=== PATIENT | male | born 1940 | race Caucasian/White ===

== ENCOUNTER 2020-08-28 13:51 | Inpatient (IN) | payer MEDICARE, OTHER ==
[~2020-08-28] VITALS: Ht 154.9 cm; Wt 58.8 kg
[2020-08-28 14:48] LABS: Basophils # (auto) 0.1 10 ^3/uL (0-0.2); Basophils % (auto) 0.9 % (0.0-2.0); Eosinophils # (auto) 0.4 10 ^3/uL (0-0.8); Eosinophils % (auto) 5.1 % (0.0-7.0); Hematocrit 38.1 % (41.0-53.0); Hemoglobin 13.2 g/dL (13.5-17.5); Lymphocytes # (auto) 1.8 10 ^3/uL (0.4-5.4); Lymphocytes % (auto) 22.7 % (10.0-50.0); Mean Corpuscular Hemoglobin 32.4 pg (28.0-32.0); Mean Corpuscular Hgb Conc. 34.6 g/dL (32.0-36.0); Mean Corpuscular Volume 93.5 fL (80.0-100.0); Monocytes # (auto) 0.6 10 ^3/uL (0-1.3); Monocytes % (auto) 7.6 % (0.0-12.0); Neutrophils % (auto) 63.7 % (37.0-80.0); Red Blood Cells 4.07 10^6/uL (4.5-5.90); Red Cell Distribution Width 13.5 % (11.8-14.3); White Blood Cell 7.9 10^3/uL (4.4-10.8)
[2020-08-28 15:05] LABS: Albumin 3.2 g/dL (3.4-5.0); Anion Gap 6 (5-15); Blood Urea Nitrogen 27 mg/dL (7-18); Calcium 8.3 mg/dL (8.5-10.1); Carbon Dioxide 25 mmol/L (21-32); Chloride 105 mmol/L (98-107); GFR African American 88 mL/min; GFR Non-African American 73 mL/min; Glucose 154 mg/dL (74-106); Potassium 3.8 mmol/L (3.5-5.1); Sodium 136 mmol/L (136-145)
[2020-08-28 15:10] LABS: Alanine Aminotransferase 51 U/L (16-61); Alkaline Phosphatase 93 U/L (45-117); Aspartate Aminotransferase 32 U/L (15-37); Bilirubin, Total 0.2 mg/dL (0.2-1.0); Total Protein 7.4 g/dL (6.4-8.2)
[2020-08-28 21:17] LABS: Basophils # (auto) 0.1 10 ^3/uL (0-0.2); Eosinophils # (auto) 0.4 10 ^3/uL (0-0.8); Eosinophils % (auto) 5.6 % (0.0-7.0); Hematocrit 35.2 % (41.0-53.0); Hemoglobin 12.4 g/dL (13.5-17.5); Lymphocytes # (auto) 1.8 10 ^3/uL (0.4-5.4); Lymphocytes % (auto) 23.1 % (10.0-50.0); Mean Corpuscular Hemoglobin 32.6 pg (28.0-32.0); Mean Corpuscular Hgb Conc. 35.2 g/dL (32.0-36.0); Mean Corpuscular Volume 92.7 fL (80.0-100.0); Monocytes # (auto) 0.7 10 ^3/uL (0-1.3); Monocytes % (auto) 8.6 % (0.0-12.0); Neutrophils # (auto) 4.7 10 ^3/uL (1.6-8.6); Neutrophils % (auto) 61.7 % (37.0-80.0); Red Cell Distribution Width 13.3 % (11.8-14.3); White Blood Cell 7.7 10^3/uL (4.4-10.8)
[2020-08-28 21:33] LABS: INR 1.05 (0.9-1.15)
[2020-08-28 21:39] LABS: Magnesium 2.4 mg/dL (1.6-2.6); Potassium 3.7 mmol/L (3.5-5.1)
[2020-08-28 21:42] LABS: BUN/Creatinine Ratio 29.3; Bilirubin, Total 0.2 mg/dL (0.2-1.0)
[2020-08-28 23:27] LABS: Urine Bacteria FEW /hpf (None Seen); Urine Blood Negative /uL (Negative); Urine Specific Gravity 1.023 (1.001-1.035); Urine WBC 1 /hpf (0 - 3)
[2020-08-29] MEDS ORDERED: ONDANSETRON HCL 4 MG/2 ML VIAL IV PRN (03:00)
[2020-08-29] MEDS ORDERED: DOCUSATE SOD 100 MG CAP PO PRN (03:00)
[2020-08-29] MEDS ORDERED: ACETAMINOPHEN 325 MG TAB PO PRN (03:00)
[2020-08-29] MEDS ORDERED: DEXTROSE (50%) 50ML SYRG IV PRN ×2 (03:00→13:00)
[2020-08-29] MEDS: InsuLIN REG 1unit/0.01ml Soln (100units/ml) SC SCH ×4 (04:58→17:27)
[2020-08-29] MEDS: SODIUM CHLORIDE 0.9% 1,000 ML IV SCH ×2 (04:58→13:53)
[2020-08-29] MEDS: ACCU-CHEK COMFORT CURVE STRIP VI SCH ×4 (04:58→17:25)
[2020-08-29 07:17] LABS: Basophils # (auto) 0.1 10 ^3/uL (0-0.2); Basophils % (auto) 0.9 % (0.0-2.0); Eosinophils # (auto) 0.5 10 ^3/uL (0-0.8); Eosinophils % (auto) 5.5 % (0.0-7.0); Hematocrit 36.6 % (41.0-53.0); Hemoglobin 13.2 g/dL (13.5-17.5); Lymphocytes # (auto) 1.9 10 ^3/uL (0.4-5.4); Lymphocytes % (auto) 22.1 % (10.0-50.0); Mean Corpuscular Hemoglobin 33.4 pg (28.0-32.0); Mean Corpuscular Volume 92.8 fL (80.0-100.0); Monocytes # (auto) 0.7 10 ^3/uL (0-1.3); Monocytes % (auto) 7.6 % (0.0-12.0); Neutrophils # (auto) 5.5 10 ^3/uL (1.6-8.6); Neutrophils % (auto) 63.9 % (37.0-80.0); Nucleated Red Blood Cells % 0.1 %; Red Blood Cells 3.94 10^6/uL (4.5-5.90); Red Cell Distribution Width 13.2 % (11.8-14.3); White Blood Cell 8.7 10^3/uL (4.4-10.8)
[2020-08-29 07:39] LABS: BUN/Creatinine Ratio 20.7; Calcium 7.9 mg/dL (8.5-10.1); Potassium 3.8 mmol/L (3.5-5.1)
[2020-08-29 09:00] VITALS: BP 172/81
[2020-08-29 13:00] VITALS: BP 152/70
[2020-08-29] MEDS ORDERED: LISINOPRIL 10 MG TAB PO ONE (13:00)
[2020-08-29 13:10] VITALS: BP 168/71
[2020-08-29] MEDS ORDERED: LOSA-39 PO (13:38)
[2020-08-29] MEDS ORDERED: FINA5TAB4 PO (13:38)
[2020-08-29] MEDS ORDERED: TAM04C PO (13:38)
[2020-08-29] MEDS ORDERED: BENA10TA15 PO (13:38)
[2020-08-29] MEDS ORDERED: ASPI-543 PO (13:38)
[2020-08-29] MEDS ORDERED: SIMV-13 PO (13:38)
[2020-08-29] MEDS ORDERED: SERT50TA19 PO (13:38)
[2020-08-29 16:41] VITALS: BP 155/70
[2020-08-29] MEDS: ATORVASTATIN 20 MG TAB PO SCH (21:37)
[2020-08-29 22:15] VITALS: BP 141/71
[2020-08-30] MEDS: ACCU-CHEK COMFORT CURVE STRIP VI SCH ×4 (01:52→17:51)
[2020-08-30 04:56] VITALS: BP 150/67
[2020-08-30] MEDS: InsuLIN REG 1unit/0.01ml Soln (100units/ml) SC SCH ×4 (05:34→17:49)
[2020-08-30 09:00] VITALS: BP 122/71
[2020-08-30] MEDS: ASPirin 81 mg TAB PO SCH (10:12)
[2020-08-30] MEDS: LISINOPRIL 10 MG TAB PO SCH (10:13)
[2020-08-30] MEDS: SODIUM CHLORIDE 0.9% 1,000 ML IV SCH (12:20)
[2020-08-30] MEDS ORDERED: LIDOCAINE 2%HCL (LOCAL ANESTH.) INJ 20ML MDV ONE (12:32)
[2020-08-30 13:00] VITALS: BP 145/70
[2020-08-30 17:00] VITALS: BP 150/63
[2020-08-30] MEDS: ATORVASTATIN 20 MG TAB PO SCH (21:49)
[2020-08-30 22:39] VITALS: BP 130/54
[2020-08-31 05:25] VITALS: BP 142/65
[2020-08-31] MEDS: InsuLIN REG 1unit/0.01ml Soln (100units/ml) SC SCH ×4 (06:00→17:36)
[2020-08-31] MEDS: ACCU-CHEK COMFORT CURVE STRIP VI SCH ×4 (06:03→17:36)
[2020-08-31 08:56] VITALS: BP 144/64
[2020-08-31] MEDS: ASPirin 81 mg TAB PO SCH (09:52)
[2020-08-31] MEDS: LISINOPRIL 10 MG TAB PO SCH (09:53)
[2020-08-31 12:38] VITALS: BP 144/75
[2020-08-31 16:36] VITALS: BP 143/69
[2020-08-31] MEDS: ATORVASTATIN 20 MG TAB PO SCH (21:29)
[2020-08-31 22:00] VITALS: BP 149/72
[2020-09-01] MEDS: ACCU-CHEK COMFORT CURVE STRIP VI SCH ×4 (00:08→17:40)
[2020-09-01 05:00] VITALS: BP 163/76
[2020-09-01] MEDS: InsuLIN REG 1unit/0.01ml Soln (100units/ml) SC SCH ×4 (06:00→17:40)
[2020-09-01 09:00] VITALS: BP 137/64
[2020-09-01] MEDS: ASPirin 81 mg TAB PO SCH (09:18)
[2020-09-01] MEDS: LISINOPRIL 10 MG TAB PO SCH (09:20)
[2020-09-01 13:00] VITALS: BP 142/71
[2020-09-01 17:00] VITALS: BP 155/68
[2020-09-01] MEDS: ATORVASTATIN 20 MG TAB PO SCH (20:53)
[2020-09-01 22:00] VITALS: BP 139/71
[2020-09-02] MEDS: ACCU-CHEK COMFORT CURVE STRIP VI SCH ×5 (00:12→22:57)
[2020-09-02 04:00] VITALS: BP 128/74
[2020-09-02] MEDS: InsuLIN REG 1unit/0.01ml Soln (100units/ml) SC SCH ×5 (04:58→22:57)
[2020-09-02 09:00] VITALS: BP 144/80
[2020-09-02] MEDS: ASPirin 81 mg TAB PO SCH (09:59)
[2020-09-02] MEDS: LISINOPRIL 10 MG TAB PO SCH (09:59)
[2020-09-02 13:00] VITALS: BP 150/84
[2020-09-02 17:46] VITALS: BP 155/68
[2020-09-02] MEDS: ATORVASTATIN 20 MG TAB PO SCH (20:40)
[2020-09-02 22:19] VITALS: BP 147/81
[2020-09-03] MEDS: InsuLIN REG 1unit/0.01ml Soln (100units/ml) SC SCH ×4 (05:02→22:37)
[2020-09-03] MEDS: ACCU-CHEK COMFORT CURVE STRIP VI SCH ×4 (05:02→22:37)
[2020-09-03 05:30] VITALS: BP 155/78
[2020-09-03 08:30] VITALS: BP 146/72
[2020-09-03] MEDS: ASPirin 81 mg TAB PO SCH (10:21)
[2020-09-03] MEDS: LISINOPRIL 10 MG TAB PO SCH (10:22)
[2020-09-03 13:00] VITALS: BP 127/68
[2020-09-03 16:27] LABS: CSF White Blood Cells 0 CUMM (0-5)
[2020-09-03 16:38] VITALS: BP 142/76
[2020-09-03 20:26] VITALS: BP 129/74
[2020-09-03] MEDS: ATORVASTATIN 20 MG TAB PO SCH (20:52)
[2020-09-04 04:06] VITALS: BP 159/86
[2020-09-04] MEDS: ACCU-CHEK COMFORT CURVE STRIP VI SCH ×3 (05:29→18:23)
[2020-09-04] MEDS: InsuLIN REG 1unit/0.01ml Soln (100units/ml) SC SCH ×3 (05:29→18:00)
[2020-09-04 09:00] VITALS: BP 149/68
[2020-09-04] MEDS: ASPirin 81 mg TAB PO SCH (10:14)
[2020-09-04] MEDS: LISINOPRIL 10 MG TAB PO SCH (10:15)
[2020-09-04] MEDS: Ensure HIGH Protein Chocolate 8oz Bottle PO SCH ×2 (12:05→18:23)
[2020-09-04 13:00] VITALS: BP 129/66
[2020-09-04 17:00] VITALS: BP 135/70
[2020-09-04] MEDS: ATORVASTATIN 20 MG TAB PO SCH (21:22)
[2020-09-04 22:00] VITALS: BP 135/68
[2020-09-05] MEDS: ACCU-CHEK COMFORT CURVE STRIP VI SCH ×5 (00:44→23:57)
[2020-09-05 05:00] VITALS: BP 130/64
[2020-09-05] MEDS: InsuLIN REG 1unit/0.01ml Soln (100units/ml) SC SCH ×5 (06:00→23:57)
[2020-09-05] MEDS: Ensure HIGH Protein Chocolate 8oz Bottle PO SCH ×3 (08:00→18:00)
[2020-09-05 09:00] VITALS: BP 106/66
[2020-09-05] MEDS: ASPirin 81 mg TAB PO SCH (10:07)
[2020-09-05] MEDS: LISINOPRIL 10 MG TAB PO SCH (10:07)
[2020-09-05 13:00] VITALS: BP 110/60
[2020-09-05 16:45] VITALS: BP 104/65
[2020-09-05] MEDS: ATORVASTATIN 20 MG TAB PO SCH (21:36)
[2020-09-05 22:00] VITALS: BP 145/76
[2020-09-06 05:00] VITALS: BP 152/74
[2020-09-06] MEDS: InsuLIN REG 1unit/0.01ml Soln (100units/ml) SC SCH ×4 (05:55→23:07)
[2020-09-06] MEDS: ACCU-CHEK COMFORT CURVE STRIP VI SCH ×4 (05:55→23:07)
[2020-09-06] MEDS: Ensure HIGH Protein Chocolate 8oz Bottle PO SCH ×3 (08:00→18:53)
[2020-09-06 09:00] VITALS: BP 114/61
[2020-09-06] MEDS: ASPirin 81 mg TAB PO SCH (10:38)
[2020-09-06] MEDS: LISINOPRIL 10 MG TAB PO SCH (10:38)
[2020-09-06 12:43] VITALS: BP 147/73
[2020-09-06 17:00] VITALS: BP 156/83
[2020-09-06 22:00] VITALS: BP 148/78
[2020-09-06] MEDS: ATORVASTATIN 20 MG TAB PO SCH (23:07)
[2020-09-07 05:00] VITALS: BP 144/71
[2020-09-07] MEDS: ACCU-CHEK COMFORT CURVE STRIP VI SCH (05:26)
[2020-09-07] MEDS: InsuLIN REG 1unit/0.01ml Soln (100units/ml) SC SCH (05:26)
[2020-09-07] MEDS: Ensure HIGH Protein Chocolate 8oz Bottle PO SCH (08:11)
[2020-09-07 09:00] VITALS: BP 158/72
[2020-09-07] MEDS: ASPirin 81 mg TAB PO SCH (09:13)
[2020-09-07] MEDS: LISINOPRIL 10 MG TAB PO SCH (09:14)
[2020-09-07 09:56] VITALS: BP 158/72
== END 2020-09-07 11:00 | disposition home or self-care (01) | DRG 57 ==
LOC: ER 13:51 → TELE 08-29 02:53 → TELE-WESTW 08-29 08:12
PROVIDERS: ADMIT Hospitalist; ATTEND Internal Medicine
PROC: 00JU3ZZ Inspection of Spinal Canal, Percutaneous Approach (ICD-10-PCS; principal; 2020-08-30)
DX: G91.9 Hydrocephalus, unspecified (principal); I25.10 Atherosclerotic heart disease of native coronary artery without angina pectoris; E78.5 Hyperlipidemia, unspecified; I10 Essential (primary) hypertension; E11.9 Type 2 diabetes mellitus without complications; I48.91 Unspecified atrial fibrillation; F17.200 Nicotine dependence, unspecified, uncomplicated; I25.2 Old myocardial infarction; N40.0 Benign prostatic hyperplasia without lower urinary tract symptoms; Z79.899 Other long term (current) drug therapy; Z82.49 Family history of ischemic heart disease and other diseases of the circulatory system; Z95.1 Presence of aortocoronary bypass graft; Z20.822 Contact with and (suspected) exposure to COVID-19; F03.90 Unspecified dementia, unspecified severity, without behavioral disturbance, psychotic disturbance, mood disturbance, and anxiety
CPT/HCPCS: 36415; 62272; 70450; 71045; 80048; 80053; 81001; 82607; 82945; 82962; 83036; 83735; 84157; 84443; 84484; 85025; 85610; 87081; 87426; 89051; 96360; 96361; G0378; J1815

== ENCOUNTER 2020-09-19 17:38 | Inpatient (IN) | payer MEDICARE, OTHER ==
[~2020-09-19] VITALS: Ht 157.5 cm; Wt 59.7 kg
[~2020-09-19 17:38] MED LIST: ASPI-543 PO; BENA10TA9 PO; FINA5TAB4 PO; LOSA-39 PO; SERT50TA19 PO; SIMV-13 PO; TAM04C PO
[2020-09-19 18:37] LABS: Basophils # (auto) 0.3 10 ^3/uL (0-0.2); Basophils % (auto) 3.8 % (0.0-2.0); Eosinophils # (auto) 0.5 10 ^3/uL (0-0.8); Eosinophils % (auto) 6.5 % (0.0-7.0); Hematocrit 37.7 % (41.0-53.0); Hemoglobin 13.2 g/dL (13.5-17.5); Lymphocytes # (auto) 1.6 10 ^3/uL (0.4-5.4); Lymphocytes % (auto) 21.2 % (10.0-50.0); Mean Corpuscular Hgb Conc. 35.1 g/dL (32.0-36.0); Mean Corpuscular Volume 94.1 fL (80.0-100.0); Monocytes # (auto) 0.7 10 ^3/uL (0-1.3); Monocytes % (auto) 8.8 % (0.0-12.0); Neutrophils # (auto) 4.4 10 ^3/uL (1.6-8.6); Neutrophils % (auto) 59.7 % (37.0-80.0); Nucleated Red Blood Cells % 0.1 %; Platelet Count (auto) 209 10^3/uL (140-450); Red Blood Cells 4.01 10^6/uL (4.5-5.90); Red Cell Distribution Width 14.1 % (11.8-14.3); White Blood Cell 7.4 10^3/uL (4.4-10.8)
[2020-09-19 18:54] LABS: Chloride 104 mmol/L (98-107); Potassium 3.8 mmol/L (3.5-5.1); Sodium 139 mmol/L (136-145)
[2020-09-19] MEDS ORDERED: ASPirin 81 mg TAB PO ONE (19:00)
[2020-09-19] MEDS ORDERED: LORazepam 2MG/ML-1ML VIAL IV ONE (19:00)
[2020-09-19 19:03] LABS: Alanine Aminotransferase 28 U/L (16-61); Albumin 3.3 g/dL (3.4-5.0); Alkaline Phosphatase 83 U/L (45-117); Anion Gap 7 (5-15); Aspartate Aminotransferase 23 U/L (15-37); BUN/Creatinine Ratio 29.6; Bilirubin, Total 0.2 mg/dL (0.2-1.0); Blood Urea Nitrogen 29 mg/dL (7-18); Calcium 8.4 mg/dL (8.5-10.1); Carbon Dioxide 28 mmol/L (21-32); GFR African American 94 mL/min; GFR Non-African American 78 mL/min; Glucose 100 mg/dL (74-106); Total Protein 7.2 g/dL (6.4-8.2)
[2020-09-19] MEDS ORDERED: HYDROcodone-ACET 5/325MG TAB PO PRN (22:30)
[2020-09-19] MEDS ORDERED: DOCUSATE SOD 100 MG CAP PO PRN (22:30)
[2020-09-19] MEDS ORDERED: hydrALAZINE HCL 20 MG/ML VL IV PRN (22:30)
[2020-09-19] MEDS ORDERED: ACETAMINOPHEN 325 MG TAB PO PRN (22:30)
[2020-09-19] MEDS ORDERED: ONDANSETRON HCL 4 MG/2 ML VIAL IV PRN (22:30)
[2020-09-19] MEDS ORDERED: NITROGLYCERIN 0.4 MG SL TAB SL PRN (22:30)
[2020-09-19] MEDS ORDERED: MORPHINE SULF INJ 2 MG/ML SYRINGE 1ML IV PRN (22:30)
[2020-09-19] MEDS ORDERED: DONE1TAB88 PO (23:26)
[2020-09-20 05:00] VITALS: BP 159/74
[2020-09-20] MEDS: SODIUM CHLOR 0.9% PF (SALINE LOCK) 10ML VIAL/SYR IV SCH ×3 (05:41→21:00)
[2020-09-20 06:58] LABS: Basophils # (auto) 0 10 ^3/uL (0-0.2); Basophils % (auto) 0.4 % (0.0-2.0); Eosinophils # (auto) 0.5 10 ^3/uL (0-0.8); Eosinophils % (auto) 9.1 % (0.0-7.0); Hematocrit 39.8 % (41.0-53.0); Hemoglobin 13.8 g/dL (13.5-17.5); Lymphocytes # (auto) 1.7 10 ^3/uL (0.4-5.4); Lymphocytes % (auto) 30.2 % (10.0-50.0); Mean Corpuscular Hemoglobin 32.3 pg (28.0-32.0); Mean Corpuscular Hgb Conc. 34.7 g/dL (32.0-36.0); Mean Corpuscular Volume 93.2 fL (80.0-100.0); Monocytes # (auto) 0.6 10 ^3/uL (0-1.3); Monocytes % (auto) 10.4 % (0.0-12.0); Neutrophils # (auto) 2.8 10 ^3/uL (1.6-8.6); Neutrophils % (auto) 49.9 % (37.0-80.0); Platelet Count (auto) 208 10^3/uL (140-450); Red Blood Cells 4.27 10^6/uL (4.5-5.90); Red Cell Distribution Width 14.1 % (11.8-14.3); White Blood Cell 5.6 10^3/uL (4.4-10.8)
[2020-09-20 07:25] LABS: Albumin 3.2 g/dL (3.4-5.0); Calcium 8.5 mg/dL (8.5-10.1); Potassium 3.7 mmol/L (3.5-5.1)
[2020-09-20 07:29] LABS: BUN/Creatinine Ratio 23.9; Bilirubin, Total 0.4 mg/dL (0.2-1.0)
[2020-09-20 09:00] VITALS: BP 155/67
[2020-09-20] MEDS: ASPirin 81 mg TAB PO SCH (09:37)
[2020-09-20] MEDS: BENAZEPRIL HCL 10 MG TAB PO SCH (09:38)
[2020-09-20] MEDS: FAMOTIDINE 20 MG TAB PO SCH ×2 (09:38→21:01)
[2020-09-20 13:00] VITALS: BP 178/77
[2020-09-20] MEDS ORDERED: amLODIPine BESYLATE 5 MG TAB PO ONE (13:00)
[2020-09-20 17:00] VITALS: BP 183/73
[2020-09-20] MEDS: LORazepam 0.5 MG TAB PO PRN (17:40)
[2020-09-20] MEDS: TAMSULOSIN HYDROCHLORIDE 0.4 MG CAP PO SCH (17:40)
[2020-09-20] MEDS ORDERED: LORazepam 0.5 MG TAB PO PRN ×2 (17:45)
[2020-09-20 22:00] VITALS: BP 150/79
[2020-09-20] MEDS ORDERED: ATORVASTATIN 20 MG TAB PO SCH (22:00)
[2020-09-21] MEDS: LORazepam 0.5 MG TAB PO PRN (01:32)
[2020-09-21 05:00] VITALS: BP 154/85
[2020-09-21] MEDS: SODIUM CHLOR 0.9% PF (SALINE LOCK) 10ML VIAL/SYR IV SCH ×2 (05:27→14:00)
[2020-09-21 08:00] VITALS: BP 108/72
[2020-09-21] MEDS ORDERED: amLODIPine BESYLATE 5 MG TAB PO SCH (10:00)
[2020-09-21] MEDS: BENAZEPRIL HCL 10 MG TAB PO SCH (10:11)
[2020-09-21] MEDS: ASPirin 81 mg TAB PO SCH (10:11)
[2020-09-21] MEDS: FAMOTIDINE 20 MG TAB PO SCH (10:12)
[2020-09-21 13:00] VITALS: BP 154/90
[2020-09-21 17:00] VITALS: BP 135/76
[2020-09-21] MEDS: TAMSULOSIN HYDROCHLORIDE 0.4 MG CAP PO SCH (18:17)
== END 2020-09-21 18:34 | disposition home or self-care (01) | DRG 205 ==
LOC: ER 17:38 → TELE 22:26 → TELE-WESTW 23:15
PROVIDERS: ADMIT Nurse Practitioner Family; ATTEND Internal Medicine
DX: M94.0 Chondrocostal junction syndrome [Tietze] (principal); N17.0 Acute kidney failure with tubular necrosis; G93.40 Encephalopathy, unspecified; G91.2 (Idiopathic) normal pressure hydrocephalus; D63.1 Anemia in chronic kidney disease; E11.22 Type 2 diabetes mellitus with diabetic chronic kidney disease; E78.5 Hyperlipidemia, unspecified; I12.9 Hypertensive chronic kidney disease with stage 1 through stage 4 chronic kidney disease, or unspecified chronic kidney disease; I25.10 Atherosclerotic heart disease of native coronary artery without angina pectoris; F03.90 Unspecified dementia, unspecified severity, without behavioral disturbance, psychotic disturbance, mood disturbance, and anxiety; R00.1 Bradycardia, unspecified; Z20.822 Contact with and (suspected) exposure to COVID-19; N18.9 Chronic kidney disease, unspecified; N40.0 Benign prostatic hyperplasia without lower urinary tract symptoms; Z82.49 Family history of ischemic heart disease and other diseases of the circulatory system; I25.2 Old myocardial infarction; Z95.1 Presence of aortocoronary bypass graft
CPT/HCPCS: 36415; 71045; 80053; 83735; 83880; 84484; 85025; 87081; 87426; 93005; 93306; 96374; G0378